=== PATIENT | male | born 1990 | race Two or more races ===

== ENCOUNTER 2023-12-23 18:59 | Emergency (ER) | payer OTHER ==
[2023-12-23] VITALS (9 sets, daily range): BP systolic 108–131; BP diastolic 71–89
[~2023-12-23] VITALS: Ht 167.6 cm; Wt 70.0 kg
[2023-12-23] MEDS ORDERED: SODIUM CHLORIDE 0.9% 1,000 ML IV ONE ×2 (19:30→20:55)
[2023-12-23] MEDS ORDERED: ONDANSETRON HCl 4 MG/2 ML SDV IV ONE (19:30)
[2023-12-23] MEDS ORDERED: KETOROLAC TROMETHAMINE 30 MG/ML SDV IV ONE (19:30)
[2023-12-23 19:39] LABS: URINE BILIRUBIN - DIPSTICK Negative (NEGATIVE); URINE BLOOD DIPSTICK Negative (NEGATIVE); URINE COLOR Yellow; URINE GLUCOSE - DIPSTICK Negative (NEGATIVE); URINE KETONE Negative (NEGATIVE); URINE LEUK ESTERASE Negative (NEGATIVE); URINE NITRITE - DIPSTICK Negative (Negative); URINE PROTEIN - DIPSTICK Negative (NEG-TRACE); URINE SPECIFIC GRAVITY >=1.030; URINE UROBILINOGEN - DIPSTICK 0.2 E.U./dL (0.2)
[2023-12-23 19:50] LABS: BASO% 0.4 % (0-3); EOS% 0.6 % (0-8); HEMATOCRIT 45.3 % (39.0-50.0); HEMOGLOBIN 15.4 g/dl (14.0-18.0); LYMPH% 54.5 % (15-41); MEAN CELL VOLUME 92.1 fL CALC (80.0-100.0); MEAN CORPUSCULAR HGB 31.3 pG CALC (26.0-32.0); MONO% 7.5 % (2-13); NEUT# 3.08 thou/uL (1.82-7.42); RED BLOOD COUNT 4.92 mill/uL (4.70-6.10)
[2023-12-23 20:03] LABS: ALBUMIN 5.2 g/dL (3.2-5.0); BILIRUBIN, TOTAL 0.8 mg/dL (0.2-1.3); CREATININE 0.8 mg/dL (0.7-1.3); POTASSIUM 4.1 mmol/l (3.5-5.1); TOTAL PROTEIN 9.8 g/dL (6.3-8.2)
[2023-12-23] MEDS ORDERED: MORPHINE SULFATE 4 MG/ML VIAL IV STA (20:52)
[2023-12-23] MEDS ORDERED: PROMETHAZINE HCL 25 MG/ML AMP IV ONE (20:55)
[2023-12-23] MEDS ORDERED: TAMSULOSIN HCL 0.4 MG CAP PO STA (22:22)
[2023-12-23] MEDS ORDERED: TRAMADOL HCL50 MG PO (22:24)
[2023-12-23] MEDS ORDERED: TAMSULOSIN0.4 MG PO ×2 (22:24→22:25)
[2023-12-23] MEDS ORDERED: traMADol HCL 50 MG/TAB PO ONE (22:25)
== END 2023-12-23 22:38 | disposition home or self-care (01) | DRG 694 ==
LOC: ED 18:59
PROVIDERS: Nurse Practitioner
DX: N13.2 Hydronephrosis with renal and ureteral calculous obstruction (principal)
CPT/HCPCS: Q9967